=== PATIENT | female | born 1945 | race Caucasian/White ===

== ENCOUNTER 2016-08-09 15:07 | Emergency (ER) | payer MEDICAID, MEDICARE ==
[2016-08-09] MEDS ORDERED: Sodium Chloride 0.9% 10 ML Syringe FLUSH PRN (15:30)
[2016-08-09] MEDS ORDERED: Aspirin 81 MG Tab.Chew PO ONE (15:37)
[2016-08-09] MEDS ORDERED: Tenecteplase 50 MG Kit IV ONE (15:37)
[2016-08-09] MEDS ORDERED: Tenecteplase 50 MG Kit ONE (15:38)
[2016-08-09] MEDS ORDERED: Heparin Sodium 5,000 Units/ML Vial IVPUSH ONE (15:40)
[2016-08-09] MEDS ORDERED: Heparin Sodium 5,000 Units/ML Vial ONE (15:41)
[2016-08-09] MEDS ORDERED: Aspirin 81 MG Tab.Chew ONE (15:42)
[2016-08-09] MEDS ORDERED: Heparin Sodium/D5W 25,000 UNITS/500 ML BAG IV SCH (15:45)
--- NOTE | 2016-08-09 15:48 | EDM.PDOC ---
ED HPI GENERAL MEDICAL PROBLEM - General Chief Complaint: Chest Pain Stated Complaint: CHEST PAIN x 3 DAYS Time Seen by Provider: 08/09/16 15:14 Source of Information: Reports: Patient History Limitations: Reports: No limitations - History of Present Illness INITIAL COMMENTS - FREE TEXT/NARRATIVE: The patient presents with chest pain. This started yesterday morning at 5am. The pain went away and then again at 3pm. That pain went away. Today at noon the pain came back and she was diaphoretic and she had some shortness of breath. It was more severe today and it did not go away. The pain is better. She does not take aspirin because it upsets her stomach. The pain is sharp. It did radiate to her jaw and to her left arm. She has never had trouble with her heart before. She has HTN but no diabetes or high cholesterol. She does not smoke. Onset: sudden Duration: Hour(s): (12 noon) Location: Reports: chest Quality: Reports: Sharp Severity: moderate Improves with: Reports: None Worsens with: Reports: None Context: Reports: Activity Associated Symptoms: Reports: chest pain, shortness of breath. Denies: cough, fever/chills, nausea/vomiting Chest Pain Score (Numeric/FACES): 5 - Related Data Allergies Allergy/AdvReac Type Severity Reaction Status Date / Time No Known Allergies Allergy Verified 08/09/16 15:21 Home Meds: Home Meds Gabapentin [Neurontin] 100 mg PO TID 08/09/16 [History] Prednisone [IJD: Prednisone] 4 mg PO DAILY 08/09/16 [History] Propanolol 40 mg PO BID 08/09/16 [History] Zolpidem Tartrate [Ambien] 0 mg PO BEDTIME 08/09/16 [History] Past Medical History Cardiovascular History: Reports: Hypertension Respiratory History: Reports: Other (see below) Other Respiratory History: giant cell arderitis Social & Family History - Tobacco Use Smoking Status *Q: Never Smoker - Caffeine Use Caffeine Use: Reports: Soda - Recreational Drug Use Recreational Drug Use: No ED ROS GENERAL - Review of Systems Review Of Systems: See Below Constitutional: Reports: no symptoms HEENT: Reports: No symptoms Respiratory: Reports: Shortness of Breath Cardiovascular: Reports: Chest pain Endocrine: Reports: no symptoms GI/Abdominal: Reports: No symptoms : Reports: no symptoms Musculoskeletal: Reports: no symptoms ED EXAM, GENERAL - Physical Exam Exam: See Below Exam Limited By: No limitations General Appearance: alert, no apparent distress Ears: normal external exam Nose: normal inspection Head: atraumatic, normocephalic Neck: normal inspection Respiratory/Chest: no respiratory distress, lungs clear, normal breath sounds Cardiovascular: regular rate, rhythm, no edema, no murmur GI/Abdominal: Soft, Non-Tender, No Organomegaly, No Mass Back Exam: normal inspection Extremities: normal inspection EKG INTERPRETATION EKG Date: 08/09/16 Time: 15:32 Rhythm: NSR Rate (beats/min): 62 [place]: normal P-wave: present QRS: normal ST-T: elevated (Inferior AK) Course - Vital Signs Last Recorded V/S: Last Vital Signs Temp 96.9 F 08/09/16 15:14 Pulse 66 08/09/16 15:14 Resp 14 08/09/16 15:14 BP 170/110 H 08/09/16 15:14 Pulse Ox 96 08/09/16 15:14 - Orders/Labs/Meds Orders: Active Orders 24 hr Category Date Time Status Cardiac Monitoring [RC] . DIRECTED Care 08/09/16 15:30 Active EKG Documentation Completion [RC] STAT Care 08/09/16 15:31 Active Oxygen Therapy [RC] PRN Care 08/09/16 15:30 Active Peripheral IV Care [RC] . DIRECTED Care 08/09/16 15:31 Active Chest 1V Frontal [CR] Stat Exams 08/09/16 15:31 Ordered CBC W/O DIFF,HEMOGRAM [HEME] MOTH@0700 Lab 08/11/16 07:00 Ordered CBC W/O DIFF,HEMOGRAM [HEME] MOTH@0700 Lab 08/15/16 07:00 Ordered CBC W/O DIFF,HEMOGRAM [HEME] MOTH@0700 Lab 08/18/16 07:00 Ordered CBC W/O DIFF,HEMOGRAM [HEME] MOTH@0700 Lab 08/22/16 07:00 Ordered CBC W/O DIFF,HEMOGRAM [HEME] MOTH@0700 Lab 08/25/16 07:00 Ordered CBC W/O DIFF,HEMOGRAM [HEME] MOTH@0700 Lab 08/29/16 07:00 Ordered CBC WITH AUTO DIFF [HEME] Stat Lab 08/09/16 15:30 Ordered COMPREHENSIVE METABOLIC PN,CMP [CHEM] Stat Lab 08/09/16 15:30 Ordered D-DIMER QUANTITATIVE [COAG] Stat Lab 08/09/16 15:30 Ordered TROPONIN I [CHEM] Stat Lab 08/09/16 15:30 Ordered Heparin Sodium/D5W [Heparin 25,000 Units in D5W 500 ML] Med 08/09/16 15:45 Ordered 25,000 units in 500 ml IV TITRATE Sodium Chloride 0.9% [Saline Flush] Med 08/09/16 15:30 Active 10 ml FLUSH ASDIRECTED PRN Tenecteplase [Tnkase] Med 08/09/16 15:37 Once 40 mg IV ONETIME ONE Peripheral IV Insertion Adult [OM.PC] Stat Oth 08/09/16 15:30 Ordered Medication Orders Heparin Sodium/Dextrose (Heparin 25,000 Units In D5w 500 Ml) 25,000 units in 500 mls @ IV TITRATE ZACH; 15 UNITS/KG/HR PRN Reason: Protocol Sodium Chloride (Saline Flush) 10 ml FLUSH ASDIRECTED PRN PRN Reason: Keep Vein Open Meds: Medications Generic Name Dose Route Start Last Admin Trade Name Freq PRN Reason Stop Dose Admin Heparin Sodium/Dextrose 25,000 units in 500 mls @ 08/09/16 15:45 Heparin 25,000 Units In D5w 500 Ml IV TITRATE ZACH Protocol 15 UNITS/KG/HR Sodium Chloride 10 ml 08/09/16 15:30 Saline Flush FLUSH ASDIRECTED PRN Keep Vein Open Discontinued Medications Generic Name Dose Route Start Last Admin Trade Name Freq PRN Reason Stop Dose Admin Aspirin 324 mg 08/09/16 15:37 Aspirin PO 08/09/16 15:38 ONETIME ONE Heparin Sodium (Porcine) Confirm 08/09/16 15:41 Heparin Sodium Administered 08/09/16 15:42 Dose 5,000 units .ROUTE .STK-MED ONE Heparin Sodium (Porcine) 5,000 units 08/09/16 15:40 Heparin Sodium IVPUSH 08/09/16 15:41 ONETIME ONE Tenecteplase Confirm 08/09/16 15:38 Tnkase Administered 08/09/16 15:39 Dose 50 mg .ROUTE .STK-MED ONE - Re-Assessments/Exams Free Text/Narrative Re-Assessment/Exam: 08/09/16 15:53 I ordered an IV saline lock, O2 PRN, labs, EKG and CXR. Her EKG shows ST elevation in the inferior leads. She is having an inferior STEMI. I ordered TNKase per weight based protocol, heparin bolus of 5,000 units and a heparin drip at 1,000 units per hour. Her pain is almost gone. I called [facility] in [place] and talked with Dr Turner the water filterer software test and validation engineer and Dr Maloney in the ER and they accepted the patient. I did not give her nitro. Her pain is nearly gone and she is having an inferior AK. Departure - Departure Time of Disposition: 15:55 Disposition: DC/Tfer to Acute Hospital 02 Reason for Transfer *Q: Primary PCI Indicated Condition: serious Clinical Impression: Acute myocardial infarction Qualifiers: Myocardial infarction ST status: ST elevation myocardial infarction Involved coronary artery: right coronary artery Qualified Code(s): I21.11 - ST elevation (STEMI) myocardial infarction involving right coronary artery Forms: ED Department Discharge - My Orders Last 24 Hours: My Active Orders 08/09/16 15:30 Cardiac Monitoring [RC] . DIRECTED Oxygen Therapy [RC] PRN CBC WITH AUTO DIFF [HEME] Stat COMPREHENSIVE METABOLIC PN,CMP [CHEM] Stat D-DIMER QUANTITATIVE [COAG] Stat TROPONIN I [CHEM] Stat Sodium Chloride 0.9% [Saline Flush] 10 ml FLUSH ASDIRECTED PRN Peripheral IV Insertion Adult [OM.PC] Stat 08/09/16 15:31 EKG Documentation Completion [RC] STAT Peripheral IV Care [RC] . DIRECTED Chest 1V Frontal [CR] Stat 08/09/16 15:37 Tenecteplase [Tnkase] 40 mg IV ONETIME ONE 08/09/16 15:45 Heparin Sodium/D5W [Heparin 25,000 Units in D5W 500 ML] 25,000 units in 500 ml IV TITRATE 08/11/16 07:00 CBC W/O DIFF,HEMOGRAM [HEME] MOTH@69908/15/16 07:00 CBC W/O DIFF,HEMOGRAM [HEME] MOTH@00 08/18/16 07:00 CBC W/O DIFF,HEMOGRAM [HEME] MOTH@69908/22/16 07:00 CBC W/O DIFF,HEMOGRAM [HEME] MOTH@69908/25/16 07:00 CBC W/O DIFF,HEMOGRAM [HEME] MOTH@0700 08/29/16 07:00 CBC W/O DIFF,HEMOGRAM [HEME] MOTH@07 - Assessment/Plan Last 24 Hours: My Active Orders 08/09/16 15:30 Cardiac Monitoring [RC] . DIRECTED Oxygen Therapy [RC] PRN CBC WITH AUTO DIFF [HEME] Stat COMPREHENSIVE METABOLIC PN,CMP [CHEM] Stat D-DIMER QUANTITATIVE [COAG] Stat TROPONIN I [CHEM] Stat Sodium Chloride 0.9% [Saline Flush] 10 ml FLUSH ASDIRECTED PRN Peripheral IV Insertion Adult [OM.PC] Stat 08/09/16 15:31 EKG Documentation Completion [RC] STAT Peripheral IV Care [RC] . DIRECTED Chest 1V Frontal [CR] Stat 08/09/16 15:37 Tenecteplase [Tnkase] 40 mg IV ONETIME ONE 08/09/16 15:45 Heparin Sodium/D5W [Heparin 25,000 Units in D5W 500 ML] 25,000 units in 500 ml IV TITRATE 08/11/16 07:00 CBC W/O DIFF,HEMOGRAM [HEME] MOTH@0700 08/15/16 07:00 CBC W/O DIFF,HEMOGRAM [HEME] MOTH@0708/18/16 07:00 CBC W/O DIFF,HEMOGRAM [HEME] MOTH@0708/22/16 07:00 CBC W/O DIFF,HEMOGRAM [HEME] MOTH@0700 08/25/16 07:00 CBC W/O DIFF,HEMOGRAM [HEME] MOTH@0700 08/29/16 07:00 CBC W/O DIFF,HEMOGRAM [HEME] MOTH@07
[2016-08-09 16:20] VITALS: BP 150/93
== END 2016-08-09 16:30 ==
LOC: JD.ED 15:07
DX: I21.11 ST elevation (STEMI) myocardial infarction involving right coronary artery (principal); I10 Essential (primary) hypertension; Z79.899 Other long term (current) drug therapy
CPT/HCPCS: 36415; 80053; 84484; 85025; 85379; 93005; 96365; 96375; 96376; 99285; A9270; J1644; J3101; J7050; 99284

== ENCOUNTER 2021-09-07 07:09 | Day surgery (SDC) | payer MEDICARE, MEDICAID ==
[~2021-09-07 07:09] MED LIST: Lactated Ringers 1,000 ML IV SCH; Lidocaine 1%/Sod Bicarbonate in NS 8.4% 1 ML Syringe IDERM PRN; Midazolam 1 MG/ML 2 ML SDV ONE; Ondansetron 4 MG/2 ML SDV IVPUSH PRN; Propofol 200 MG/20 ML SDV ONE; Sodium Chloride 0.9% 10 ML Syringe FLUSH PRN; Sodium Chloride 0.9% 10 ML Syringe FLUSH SCH
[2021-09-07] MEDS ORDERED: Propofol 200 MG/20 ML SDV ONE (07:10)
[2021-09-07] MEDS ORDERED: Lidocaine 1% 4 ML ONE (07:10)
[2021-09-07 09:42] VITALS: BP 130/71; PULSE 55
== END 2021-09-07 09:55 | disposition home or self-care (01) ==
LOC: JD.SDS 07:09
PROVIDERS: ATTEND Surgery
DX: D12.3 Benign neoplasm of transverse colon (principal); D12.4 Benign neoplasm of descending colon; D12.8 Benign neoplasm of rectum; K62.82 Dysplasia of anus; K57.30 Diverticulosis of large intestine without perforation or abscess without bleeding; K64.4 Residual hemorrhoidal skin tags; I10 Essential (primary) hypertension; I25.10 Atherosclerotic heart disease of native coronary artery without angina pectoris; M79.7 Fibromyalgia; E78.00 Pure hypercholesterolemia, unspecified; G47.00 Insomnia, unspecified; E78.2 Mixed hyperlipidemia; E55.9 Vitamin D deficiency, unspecified; I25.2 Old myocardial infarction; I73.9 Peripheral vascular disease, unspecified; Z87.891 Personal history of nicotine dependence; Z79.02 Long term (current) use of antithrombotics/antiplatelets; Z79.82 Long term (current) use of aspirin; Z79.899 Other long term (current) drug therapy; Z95.5 Presence of coronary angioplasty implant and graft; Z91.018 Allergy to other foods
CPT/HCPCS: 45380; 45385; J2250; J2704; J7120; 88305

== ENCOUNTER 2021-12-27 07:03 | Day surgery (SDC) | payer MEDICARE, MEDICAID ==
[~2021-12-27 07:03] MED LIST changes: +Acetaminophen 325 MG Tab PO SCH; -Midazolam 1 MG/ML 2 ML SDV ONE; +Morphine 8 MG, EPINEPHrine 0.3 MG, Cefuroxime 750 MG, Ketorolac 30 MG, Sodium Chloride ... PRN; -Ondansetron 4 MG/2 ML SDV IVPUSH PRN; +Pregabalin 25 MG Cap PO SCH; -Propofol 200 MG/20 ML SDV ONE; +Vancomycin 1 GM SDV ONE; +oxyCODONE ER 10 MG TAB.ER PO SCH
[2021-12-27] MEDS ORDERED: Propofol 200 MG/20 ML SDV ONE (07:14)
[2021-12-27] MEDS ORDERED: fentaNYL 100 MCG/2 ML SDV ONE (07:15)
[2021-12-27] MEDS ORDERED: ceFAZolin 2 GM Vial ONE (08:09)
[2021-12-27] MEDS ORDERED: Lidocaine 1% 4 ML ONE (08:16)
[2021-12-27] MEDS ORDERED: ePHEDrine 50 MG/ML SDV ONE ×2 (08:26→09:26)
[2021-12-27] MEDS ORDERED: HYDROmorphone 0.5 MG/0.5 ML Syringe IVPUSH PRN (09:03)
[2021-12-27] MEDS ORDERED: fentaNYL 100 MCG/2 ML SDV IVPUSH PRN (09:03)
[2021-12-27] MEDS ORDERED: Ondansetron 4 MG/2 ML SDV IVPUSH PRN (09:03)
[2021-12-27] MEDS ORDERED: oxyCODONE 5 MG Tab PO PRN (10:13)
[2021-12-27 17:18] VITALS: BP 126/70; PULSE 72
== END 2021-12-27 14:40 | disposition home or self-care (01) ==
LOC: JD.SDS 07:03
PROVIDERS: ATTEND Orthopaedic Surgery
DX: M16.12 Unilateral primary osteoarthritis, left hip (principal); I10 Essential (primary) hypertension; I73.9 Peripheral vascular disease, unspecified; I25.10 Atherosclerotic heart disease of native coronary artery without angina pectoris; I35.1 Nonrheumatic aortic (valve) insufficiency; E78.00 Pure hypercholesterolemia, unspecified; G47.00 Insomnia, unspecified; I25.2 Old myocardial infarction; B96.81 Helicobacter pylori [H. pylori] as the cause of diseases classified elsewhere; Z87.891 Personal history of nicotine dependence; Z79.899 Other long term (current) drug therapy; Z79.82 Long term (current) use of aspirin; Z98.890 Other specified postprocedural states; Z96.642 Presence of left artificial hip joint; Z95.5 Presence of coronary angioplasty implant and graft; Z91.018 Allergy to other foods; Z90.49 Acquired absence of other specified parts of digestive tract
CPT/HCPCS: 0055T; 27130; 36415; 73501; 85610; 85730; 86850; 86900; 86901; 97116; 97161; A9270; C1713; C1776; J0171; J0690; J0697; J1885; J2270; J2704; J3010; J3370; J7120; 01214

== ENCOUNTER 2023-01-29 11:10 | Emergency (ER) | payer MEDICAID, MEDICARE ==
[2023-01-29] MEDS ORDERED: Sodium Chloride 0.9% 10 ML Syringe FLUSH PRN (11:41)
[2023-01-29] MEDS ORDERED: Ondansetron 4 MG/2 ML SDV IVPUSH ONE (11:43)
[2023-01-29] MEDS ORDERED: Lactated Ringers 1,000 ML IV SCH (11:45)
[2023-01-29] MEDS ORDERED: LORazepam 0.5 MG Tab PO ONE (11:46)
[2023-01-29 12:08] LABS: BASOPHILS PERCENT AUTO 0.7 % (0.0-1.0); EOSINOPHILS ABSOLUTE AUTO 0.1 K/mm3 (0.0-0.4); EOSINOPHILS PERCENT AUTO 2.3 % (0.0-6.0); HEMATOCRIT 44.2 % (37.0-47.0); HEMOGLOBIN 15.4 gm/dl (12.0-16.0); IMMATURE GRAN ABSOLUTE AUTO 0.01 K/mm3 (0.00-0.05); IMMATURE GRAN PERCENT AUTO 0.2 % (0.0-0.4); LYMPHOCYTES ABSOLUTE AUTO 1.5 K/mm3 (1.0-4.8); LYMPHOCYTES PERCENT AUTO 24.6 % (24.0-44.0); MEAN CORPUSCULAR HEMOGLOBIN 34.8 pg (28.0-32.0); MEAN CORPUSCULAR HGB CONC 34.8 g/dl (32.0-36.0); MEAN PLATELET VOLUME 8.1 fl (9.4-12.3); MONOCYTES ABSOLUTE AUTO 0.6 K/mm3 (0.0-0.8); MONOCYTES PERCENT AUTO 9.2 % (0.0-8.0); NEUTROPHILS ABSOLUTE AUTO 3.8 K/mm3 (1.8-7.7); PLATELET COUNT,PLT 191 K/mm3 (150-400); RED BLOOD CELL COUNT 4.42 M/mm3 (4.10-5.30); WHITE BLOOD CELL COUNT,WBC 6.01 K/mm3 (3.9-11.3)
[2023-01-29 12:30] LABS: A/G RATIO 1.1 (1-2); ALANINE AMINOTRANSFERASE,ALT 18 U/L (14-59); ALBUMIN 3.6 g/dl (3.4-5.0); ALKALINE PHOSPHATASE 63 U/L (46-116); ANION GAP 12.5 (5-15); ASPARTATE AMNIOTRANSFERASE,AST 18 U/L (15-37); BILIRUBIN TOTAL 0.4 mg/dL (0.2-1.0); BLOOD UREA NITROGEN,BUN 15 mg/dL (7-18); C-REACTIVE PROTEIN <0.2 mg/dL (<1.0); CALCIUM 9.8 mg/dL (8.5-10.1); CARBON DIOXIDE,CO2 29 mEq/L (21-32); CHLORIDE,CL 103 mEq/L (98-107); EST CRCL DRUG DOSING (CG) 37.85 mL/min; ESTIMATED GFR 58 mL/min (>60); GLUCOSE RANDOM 131 mg/dL (70-99); POTASSIUM,K 4.5 mEq/L (3.5-5.1); SODIUM,NA 140 mEq/L (136-145); TROPONIN I HIGH SENSITIVITY 10 pg/mL (<=51)
[2023-01-29 12:52] LABS: CORONAVIRUS COVID-19 NAA NEGATIVE (NEGATIVE); INFLUENZA A NAA NEGATIVE (NEGATIVE)
[2023-01-29 13:41] LABS: APPEARANCE,URINE CLEAR (Clear); BILIRUBIN,URINE NEGATIVE (Negative); COLOR,URINE YELLOW (Yellow); GLUCOSE,URINE NEGATIVE (Negative); KETONES,URINE NEGATIVE (Negative); LEUKOCYTE ESTERASE,URINE TRACE (Negative); NITRITE,URINE NEGATIVE (Negative); OCCULT BLOOD,URINE NEGATIVE (Negative); PH,URINE 5.5 (5.0-8.0); PROTEIN,URINE NEGATIVE (Negative); UROBILINOGEN,URINE 0.2 (0.2-1.0)
[2023-01-29 14:38] LABS: BACTERIA,URINE MANY /hpf (FEW); EPITHELIAL CELLS,URINE 0-5 /hpf (0-5); MUCUS,URINE FEW /hpf (FEW); RBC,URINE 0-5 /hpf (0-5)
[2023-01-29 14:45] VITALS: BP 111/87; PULSE 62
== END 2023-01-29 14:40 | disposition home or self-care (01) ==
LOC: JD.ED 11:10
DX: K44.9 Diaphragmatic hernia without obstruction or gangrene (principal); F41.9 Anxiety disorder, unspecified; R11.0 Nausea; I10 Essential (primary) hypertension; I25.2 Old myocardial infarction; M19.90 Unspecified osteoarthritis, unspecified site; I25.10 Atherosclerotic heart disease of native coronary artery without angina pectoris; Z91.018 Allergy to other foods; Z79.899 Other long term (current) drug therapy; Z20.822 Contact with and (suspected) exposure to COVID-19
CPT/HCPCS: 0240U; 36415; 71045; 80053; 81001; 84484; 85025; 86140; 87086; 96361; 96374; 99283; A9270; J2405; J7120; 99284